=== PATIENT | female | born 1995 | race Caucasian/White ===

== ENCOUNTER 2016-05-17 22:37 | Emergency (ER) | payer BC ==
[~2016-05-17] VITALS: Ht 172.7 cm; Wt 54.5 kg
[2016-05-17 22:52] VITALS: BP 118/75; TEMP 98.6
[2016-05-17 23:42] VITALS: PULSE 78
== END 2016-05-17 23:40 | disposition home or self-care (01) ==
LOC: COL.ER 22:37
DX: N94.0 Mittelschmerz (principal)